=== PATIENT | female | born 1980 | race Caucasian/White ===

== ENCOUNTER → 2016-11-24 | Outpatient (CLI) | payer OTHER ==
--- NOTE | 2016-11-24 08:14 | REP ---
Transvaginal pelvic ultrasound 11/24/2016 Indication: Infertility Comparison: Transvaginal pelvic ultrasound 11/06/2016 Findings: This is day three of menstrual cycle. Uterus measures 8.1 x 3.9 x 4.9 cm. Endometrium is 4.6 mm in thickness and smooth. There is trace endometrial fluid identified. There is trace free fluid in posterior cul-de-sac Right ovary measures 2.5 x 1.6 x 1.8 cm and contains eight subcentimeter follicles ranging from 1.9-3.7 mm in size. Left ovary measures 3.0 x 1.8 x 2.8 cm and contains 13 sub centimeter follicles ranging from 2.7-9.6 mm size. Impression: Endometrium is 4.6 mm in thickness. There is trace fluid within the endometrium and in posterior cul-de-sac Eight sub centimeter right and 13 sub centimeter left ovarian follicles. There are no dominant follicles greater than or equal to 10 mm size. Signed by Zee Moya MD 11/24/2016 08:06 A
[2016-11-24 10:09] LABS: LUTEINIZING HORMONE 3.1 mIU/mL; PROGESTERONE 0.4 NG/ML
[2016-11-24 10:10] LABS: ESTRADIOL 59.3 PG/ML
== END | disposition home or self-care (01) ==
LOC: M LAB 07:21 → M RAD 07:21
PROVIDERS: ATTEND Obstetrics & Gynecology Reproductive Endocrinology
DX: N97.9 Female infertility, unspecified (principal); R93.8 Abnormal findings on diagnostic imaging of other specified body structures

== ENCOUNTER → 2016-12-01 | Outpatient (CLI) | payer OTHER ==
--- NOTE | 2016-12-01 07:57 | REP ---
Clinical: Infertility. Technique: Transvaginal examination. Findings: Anteverted uterus measures 8.3 x 4.0 x 5.2 cm. The endometrial complex measures 7.3 mm in thickness and has a normal trilaminar appearance. Right ovary measures 2.6 x 2.0 x 2.1 cm with approximately seven sub centimeter follicles. Left ovary measures 3.7 x 2.9 x 2.3 cm with 19 mm, 12 mm, and 13 mm follicles and two sub centimeter follicles. No pelvic fluid or adnexal mass lesion noted. Impression: Few bilateral follicles as noted above. Signed by Reese Chacon MD 12/01/2016 07:49 A
[2016-12-01 09:12] LABS: ESTRADIOL 83.4 PG/ML; LUTEINIZING HORMONE 4.9 mIU/mL; PROGESTERONE 0.5 NG/ML
== END | disposition home or self-care (01) ==
LOC: M RAD 06:56
PROVIDERS: ATTEND Obstetrics & Gynecology Reproductive Endocrinology
DX: N97.9 Female infertility, unspecified (principal)

== ENCOUNTER 2017-02-19 11:06 | Inpatient (IN) | payer OTHER ==
[~2017-02-19] VITALS: Ht 167.6 cm; Wt 75.3 kg
[2017-02-19 12:52] LABS: MEAN CORPUSCULAR HEMOGLOBIN 28.5 pg (27.0-33.0); MEAN CORPUSCULAR HGB CONC 32.6 g/dl (32.0-36.5); MEAN CORPUSCULAR VOLUME 87.5 fl (80.0-96.0); RED CELL DISTRIBUTION WIDTH 12.7 % (11.5-14.5); WHITE BLOOD COUNT 6.3 K/mm3 (4.0-10.0)
[2017-02-19 12:58] LABS: CONTROL LINE HCG INT CTR LINE PRESENT
[2017-02-19 13:09] LABS: METHADONE URINE NEGATIVE (NEGATIVE)
[2017-02-19 13:14] LABS: ALBUMIN/GLOBULIN RATIO 1.03 (1.00-1.93); ALKALINE PHOSPHATASE 113 U/L (45-117); ALT/SGPT 26 U/L (12-78); ANION GAP 5 MEQ/L (8-16); AST/SGOT 17 U/L (15-37); BILIRUBIN,DIRECT < 0.1 MG/DL (0.0-0.2); BILIRUBIN,TOTAL 0.2 MG/DL (0.2-1.0); BLOOD UREA NITROGEN 14 MG/DL (7-18); CARBON DIOXIDE LEVEL 30 MEQ/L (21-32); CHLORIDE LEVEL 105 MEQ/L (98-107); CREATININE FOR GFR 0.85 MG/DL (0.55-1.02); GLOMERULAR FILTRATION RATE > 60.0 (>60); GLUCOSE, FASTING 78 MG/DL (70-105); POTASSIUM SERUM 4.2 MEQ/L (3.5-5.1); SODIUM LEVEL 140 MEQ/L (136-145); TOTAL PROTEIN 7.9 GM/DL (6.4-8.2)
[2017-02-19] MEDS ORDERED: PROP60TA14 PO (14:37)
[2017-02-19] MEDS ORDERED: [UNRECOGNIZED DRUG - OTHER] GT (14:37)
[2017-02-19] MEDS ORDERED: PRAZ1CAP PO (14:37)
[2017-02-19] MEDS ORDERED: AMBI5TAB PO (14:37)
[2017-02-19] MEDS ORDERED: ZZZQ50LI PO (14:37)
[2017-02-19] MEDS ORDERED: LEXA1TAB2 PO (14:37)
[2017-02-19] MEDS ORDERED: ZOLP12.515 PO (15:33)
[2017-02-19 17:52] VITALS: BP 131/87
[2017-02-19] MEDS ORDERED: MOM 30ML SUSPENSION UDC PO PRN (18:45)
[2017-02-19] MEDS ORDERED: ACETAMINOPHEN TAB 650MG DOSE (2X325MG) PO PRN (18:45)
[2017-02-19] MEDS ORDERED: MAALOX 30 ML SUSP *UDC PO PRN (18:45)
[2017-02-19] MEDS: traZODone 50 MG TAB PO PRN (21:07)
[2017-02-19] MEDS: PRAZOSIN 1 MG CAP PO SCH (21:08)
[2017-02-20 06:33] VITALS: BP 100/58
[2017-02-20] MEDS: PANTOPRAZOLE 40MG TAB (PROTONIX) PO SCH (08:39)
[2017-02-20] MEDS: CitaloPRAM (CeleXA) 20 MG TAB PO SCH ×2 (08:40→09:54)
[2017-02-20] MEDS: hydrOXYzine 25 MG TAB PO SCH ×3 (09:54→21:04)
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
[2017-02-20 18:00] VITALS: BP 96/56
[2017-02-20] MEDS: PRAZOSIN 1 MG CAP PO SCH (21:04)
[2017-02-20] MEDS: traZODone 50 MG TAB PO PRN (21:04)
[2017-02-21 07:00] VITALS: BP 93/52
[2017-02-21] MEDS: CitaloPRAM (CeleXA) 20 MG TAB PO SCH (08:34)
[2017-02-21] MEDS: PANTOPRAZOLE 40MG TAB (PROTONIX) PO SCH (08:34)
[2017-02-21] MEDS: hydrOXYzine 25 MG TAB PO SCH ×3 (08:34→22:13)
--- NOTE | 2017-02-21 09:01 | ECGEPIP ---
Stationary ECG Study [facility] - ED Test Date: 2017-02-19 Pat Name: ASHLEY GONZALEZ Department: Room: - Gender: F Surgical Services Director: JAVAD : 1980 Requested By: BACILIO Moreno Order Number: [id number] Reading MD: Dwayne Bonds Measurements Intervals [place] Rate: 61 P: 19 IA: 142 QRS: 76 QRSD: 101 T: 40 QT: 442 QTc: 445 Interpretive Statements SINUS RHYTHM INCOMPLETE RIGHT BUNDLE BRANCH BLOCK NO PRIOR Electronically Signed On 02-21-2017 9:00:58 EDT by Dwayne Bonds
[2017-02-21 18:00] VITALS: BP 123/63
[2017-02-21] MEDS: traZODone 50 MG TAB PO PRN (22:13)
[2017-02-21] MEDS: PRAZOSIN 1 MG CAP PO SCH (22:14)
[2017-02-22 06:42] VITALS: BP 97/55
[2017-02-22] MEDS: CitaloPRAM (CeleXA) 20 MG TAB PO SCH (09:06)
[2017-02-22] MEDS: hydrOXYzine 25 MG TAB PO SCH ×3 (09:06→21:41)
[2017-02-22] MEDS: PANTOPRAZOLE 40MG TAB (PROTONIX) PO SCH (09:06)
--- NOTE | 2017-02-22 10:04 | IPN ---
DATE: 02/21/2017 Paulina Carrillo is seen today with female staff. Eye contact is poor. Mood is low. Patient is anxious. Patient states she wishes to leave. Patient states she does not trust any men. When questioned on how she functioned in the [employer] in this condition, patient states that she kept on a "happy face." Patient presently denying hallucinations, delusions, obsessions, compulsions, and phobias. Her speech is quiet. Thought process is clear. No loose associations. No abnormal or psychotic thoughts. Judgment and insight poor. Orientation in three spheres is present. No disturbance of recent and remote memory. Fund of knowledge is full. Mood is low, affect is sad. Patient sarcastically stated in order to be discharged she would "put on a happy face." She was very concerned that members of her unit seemed to know about her hospitalization "at the [facility]" in [place]. IMPRESSION: 1. Posttraumatic stress disorder. 2. Major depression. I have moved her citalopram to 40 mg per day, prazosin 2 mg, Atarax 25 mg three times a day. [facility]
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
[2017-02-22 18:00] VITALS: BP 114/58
[2017-02-22] MEDS: traZODone 50 MG TAB PO PRN (21:40)
[2017-02-22 21:41] VITALS: BP 124/78
[2017-02-22] MEDS: PRAZOSIN 1 MG CAP PO SCH (21:41)
[2017-02-23 06:34] VITALS: BP 119/59
[2017-02-23] MEDS ORDERED: HYDR25T PO (07:20)
[2017-02-23] MEDS ORDERED: PANT40TA2 PO (07:20)
[2017-02-23] MEDS ORDERED: MINI1CAP PO (07:20)
[2017-02-23] MEDS ORDERED: CITA40TA4 PO (07:20)
--- NOTE | 2017-02-23 07:47 | HPE ---
DATE OF ADMISSION: 02/19/2017 HISTORY OF PRESENT ILLNESS: Please refer to psychiatric history and evaluation for further details on this admission. This examination and history is intended for medical issues, which may need treatment, followup or consult on this 37-year-old female. ALLERGIES: No known allergies. PRIMARY CARE PROVIDER: [facility]. 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 She has three children; a girl three years old, a boy nine years old, a girl eight years old. Ethyl alcohol (EtOH) once a month if that. Smoker. She states she quit January 2017. Recreational drug use none. PAST MEDICAL HISTORY: Negative. PAST SURGICAL HISTORY: Negative. LABORATORY DATA: CBC was normal. Electrolytes are normal. BUN is 14, creatinine 0.8. Toxicology was negative. HOME MEDICATIONS: - Lexapro 20 mg by mouth daily - prazosin 1 mg by mouth at bedtime - Ambien 12.5 mg by mouth at bedtime - ZzzQuil 50 mg per 30 mL one by mouth at bedtime as needed for sleep REVIEW OF SYSTEMS: 10-system review was done and was unremarkable. She had no complaints. PHYSICAL EXAMINATION: A 37-year-old cooperative female in no acute distress. Height 66 inches, weight 75.5 kg. Body mass index (BMI) 26.9. VITAL SIGNS: Blood pressure 123/63, pulse 73, respirations 16, temperature 98.9. GENERAL: The patient is alert and oriented times three. HEENT: Pupils equal and react to light. Extraocular movements are intact. Sclerae clear. Conjunctivae normal. No facial asymmetry. Pharynx, tongue and gums are pink and moist. Tongue is midline. NECK: Supple without lymphadenopathy. No thyromegaly. No goiter. CHEST: Clear to auscultation. No wheeze or retraction. CARDIAC: Regular. ABDOMEN: Benign. Bowel sounds positive. GENITOURINARY/RECTAL: Not done. EXTREMITIES: Show equal strength. Full range of motion. No cyanosis, clubbing or edema. Peripheral pulses equal and palpable bilaterally. SKIN: Warm and dry. IMPRESSION AND PLAN: Psychiatric plan per psychiatry. No acute medical issues.
[2017-02-23] MEDS: PANTOPRAZOLE 40MG TAB (PROTONIX) PO SCH (08:35)
[2017-02-23] MEDS: hydrOXYzine 25 MG TAB PO SCH (08:35)
[2017-02-23] MEDS: CitaloPRAM (CeleXA) 20 MG TAB PO SCH (08:35)
[2017-02-23] MEDS ORDERED: TRAZ50TA4 PO (15:01)
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
== END 2017-02-23 09:35 | disposition home or self-care (01) | DRG 882 ==
LOC: M ED 12:46 → M ED INP 14:51 → M PSY 17:15
PROVIDERS: ADMIT Psychiatry & Neurology Child & Adolescent Psychiatry; ATTEND Psychiatry & Neurology Child & Adolescent Psychiatry
DX: F43.10 Post-traumatic stress disorder, unspecified (principal); F32.9 Major depressive disorder, single episode, unspecified; T48.3X2A Poisoning by antitussives, intentional self-harm, initial encounter; Y92.009 Unspecified place in unspecified non-institutional (private) residence as the place of occurrence of the external cause; Z62.810 Personal history of physical and sexual abuse in childhood; Z87.891 Personal history of nicotine dependence; Z79.899 Other long term (current) drug therapy

== ENCOUNTER 2020-06-07 12:45 | Inpatient (IN) | payer OTHER ==
[~2020-06-07 12:45] MED LIST: AMBI5TAB PO; CITA40TA4 PO; HYDR-3363 PO; LEXA1TAB2 PO; MINI1CAP PO; PANT40TA29 PO; PRAZ1CAP PO; PROP60TA14 PO; TRAZ-252 PO; ZOLP12.518 PO; ZZZQ50LI PO; [UNRECOGNIZED DRUG - OTHER] GT
[2020-06-07] MEDS ORDERED: miSOPROStol 200 MCG TAB (S0191) As Ordered ONE ×2 (19:26→23:34)
[2020-06-07] MEDS ORDERED: miSOPROStol 200 MCG TAB (S0191) ONE ×2 (19:26→23:16)
[2020-06-07] MEDS ORDERED: FENTANYL 2MCG/ML ROPIVACAINE 0.2% IN 0.9% NACL 100ML IVBAG As Ordered ONE ×2 (19:27→22:07)
[2020-06-07] MEDS ORDERED: zolPIDEM TARTRATE 5 MG TAB ONE (21:22)
[2020-06-07] MEDS ORDERED: FENTANYL 2MCG/ML ROPIVACAINE 0.2% IN 0.9% NACL 100ML IVBAG ONE (22:07)
[2020-06-07] MEDS ORDERED: ePHEDrine SULFATE 25 MG/5 ML(5MG/ML) SYRINGE As Ordered ONE (23:16)
[2020-06-07] MEDS ORDERED: ePHEDrine SULFATE 25 MG/5 ML(5MG/ML) SYRINGE ONE (23:16)
[2020-06-08] MEDS ORDERED: LOPERAMIDE 2 MG CAPLET ONE ×2 (00:40→02:33)
[2020-06-08] MEDS ORDERED: LOPERAMIDE 2 MG CAPLET As Ordered ONE ×2 (00:40→02:33)
[2020-06-08] MEDS ORDERED: miSOPROStol 100 MCG TAB (S0191) ONE ×2 (02:33→02:37)
[2020-06-08] MEDS ORDERED: ACETAMINOPHEN 500 MG TAB ONE (02:33)
[2020-06-08] MEDS ORDERED: ACETAMINOPHEN 500 MG TAB As Ordered ONE (02:33)
[2020-06-08] MEDS ORDERED: miSOPROStol 100 MCG TAB (S0191) As Ordered ONE ×2 (02:34→02:37)
[2020-06-08] MEDS ORDERED: miSOPROStol 200 MCG TAB (S0191) As Ordered ONE (02:36)
[2020-06-08] MEDS ORDERED: OXYTOCIN 30 UNITS IN 0.9% NaCl 500ML IV BAG (J2590) As Ordered ONE (04:48)
[2020-06-08] MEDS ORDERED: OXYTOCIN 30 UNITS IN 0.9% NaCl 500ML IV BAG (J2590) ONE (04:48)
[2020-07-28 22:05] LABS: RED BLOOD COUNT 4.37 10^6/uL (4.00-5.40)
[2020-07-28 22:06] LABS: BASO % 0.6 % (0.0-1.0); EOS # 0.1 10^3/uL (0.0-0.5); EOS % 0.6 % (0.0-3.0); HEMATOCRIT 37.8 % (36.0-47.0); HEMOGLOBIN 12.6 g/dl (12.0-15.5); LYMPH # 2.7 10^3/uL (1.5-5.0); LYMPH % 24.1 % (24.0-44.0); MEAN CORPUSCULAR HEMOGLOBIN 28.8 pg (27.0-33.0); MEAN CORPUSCULAR HGB CONC 33.3 g/dl (32.0-36.5); MEAN CORPUSCULAR VOLUME 86.5 fl (80.0-96.0); MONO # 0.5 10^3/uL (0.0-0.8); MONO % 4.5 % (0.0-5.0); NEUTROPHILS # 7.7 10^3/uL (1.5-8.5); NEUTROPHILS % 69.7 % (36.0-66.0); PLATELET COUNT, AUTOMATED 336 10^3/uL (150-450)
[2020-07-28 22:07] LABS: BASO # 0.1 10^3/uL (0.0-0.2)
[2020-08-04 14:07] LABS: CHROMPC1 SEE SEPARATE REPORT
[2020-08-18 14:35] LABS: ANTI PARVO VIRUS LEVEL IGG SEE SEPARATE REPORT; ANTI PARVO VIRUS LEVEL IgM SEE SEPARATE REPORT; ANTI THROMBIN 3 FUNCT ACTIVITY SEE SEPARATE REPORT % NORMAL; CARDIOLIPIN IGA ANTIBODY SEE SEPARATE REPORT; CARDIOLIPIN IGG ANTIBODY SEE SEPARATE REPORT; CARDIOLIPIN IGM ANTIBODY SEE SEPARATE REPORT; FACTOR II PROTHROMBIN GENE AN SEE SEPARATE REPORT; FACTOR V LEIDEN FOR MEDINET SEE SEPARATE REPORT; MTHFR DNA ANALYSIS SEE SEPARATE REPORT; PROTEIN C FUNCTIONAL ACTIVITY SEE SEPARATE REPORT %; PROTEIN S FUNCTIONAL ACTIVITY SEE SEPARATE REPORT %
[2020-08-18 14:37] LABS: CYTOMEGALOVIRUS IgG ANTIBODY SEE SEPARATE REPORT
[2020-08-30 13:32] LABS: FREE T3 2.2 PG/ML (2.2-4.0); FREE T4 1.02 NG/DL (0.76-1.46); THYROGLOBULIN ANTIBODY < 15.0 U/ML (<60.0)
[2020-09-04 12:51] LABS: INR 0.99; PARTIAL THROMBOPLASTIN TIME 27.7 SECONDS (24.2-38.5); PROTHROMBIN TIME 13.3 SECONDS (12.5-14.3)
== END 2020-06-08 10:20 | disposition home or self-care (01) | DRG 807 ==
LOC: M LDI 12:45
PROVIDERS: ADMIT Obstetrics & Gynecology; ATTEND Obstetrics & Gynecology
PROC: 10D17Z9 Manual Extraction of Products of Conception, Retained, Via Natural or Artificial Opening (ICD-10-PCS; principal; 2020-06-08)
PROC: 10E0XZZ Delivery of Products of Conception, External Approach (ICD-10-PCS; 2020-06-08)
DX: O02.1 Missed abortion (principal); Z37.0 Single live birth; Z3A.16 16 weeks gestation of pregnancy

== ENCOUNTER 2023-09-25 10:07 | Emergency (ER) | payer OTHER ==
[~2023-09-25] VITALS: Ht 170.2 cm; Wt 88.5 kg
[~2023-09-25 10:07] MED LIST changes: -CITA40TA4 PO; +CITA40TA7 PO
[2023-09-25] MEDS ORDERED: SYNT50TA (10:18)
[2023-09-25] MEDS ORDERED: VITA100093 (10:18)
[2023-09-25] MEDS ORDERED: ONDANSETRON 4MG 2ML VIAL IV ONE (12:45)
[2023-09-25] MEDS ORDERED: ACETAMINOPHEN TAB 650MG DOSE (2X325MG) PO ONE (12:45)
[2023-09-25] MEDS ORDERED: KETOROLAC 30 MG/ML 1ML VIAL IV ONE (12:45)
[2023-09-25] MEDS ORDERED: NS 1,000 ML IV ONE (12:45)
[2023-09-25 12:46] LABS: BASO % 0.5 % (0.0-1.0); EOS # 0.1 10^3/uL (0.0-0.5); EOS % 1.7 % (0.0-3.0); HEMATOCRIT 41.2 % (36.0-47.0); HEMOGLOBIN 13.6 g/dl (12.0-15.5); LYMPH # 2.4 10^3/uL (1.5-5.0); LYMPH % 39.4 % (24.0-44.0); MEAN CORPUSCULAR HEMOGLOBIN 28.3 pg (27.0-33.0); MEAN CORPUSCULAR VOLUME 85.8 fl (80.0-96.0); MONO # 0.4 10^3/uL (0.0-0.8); MONO % 6.3 % (2.0-8.0); NEUTROPHILS # 3.1 10^3/uL (1.5-8.5); NEUTROPHILS % 51.8 % (36.0-66.0); PLATELET COUNT, AUTOMATED 349 10^3/uL (150-450)
[2023-09-25 13:01] LABS: ERYTHROCYTE SEDIMENTATION RATE 23 mm/hr (0-20)
[2023-09-25 13:07] LABS: MAGNESIUM LEVEL 2.1 MG/DL (1.8-2.4)
[2023-09-25 13:08] LABS: C REACTIVE PROTEIN QUANTITATIV < 0.40 MG/DL (<1.0)
[2023-09-25 13:12] LABS: THYROID STIMULATING HORMONE 2.214 uIU/ML (0.55-4.78)
[2023-09-25] MEDS ORDERED: KETO10TAB PO (13:49)
[2023-09-25] MEDS ORDERED: ONDA4TAB6 PO (13:49)
[2023-09-25 13:56] VITALS: BP 127/76; TEMP 96.7; O2SAT 99
== END 2023-09-25 14:22 | disposition home or self-care (01) ==
LOC: M ED 10:07
DX: G43.909 Migraine, unspecified, not intractable, without status migrainosus (principal); K21.9 Gastro-esophageal reflux disease without esophagitis; E03.9 Hypothyroidism, unspecified; Z87.891 Personal history of nicotine dependence
CPT/HCPCS: 80047; 83735; 84443; 84702; 85025; 85652; 86140; 96361; 96374; 96375; 99284; J1885; J2405

== ENCOUNTER → 2024-02-24 | Outpatient (REF) | payer OTHER ==
[~2024-02-24] MED LIST changes: +KETO10TAB PO; +ONDA4TAB6 PO; +SYNT50TA; +VITA100093
== END ==
LOC: M LAB REF 16:11
PROVIDERS: ATTEND Nurse Practitioner Family
DX: R30.0 Dysuria (principal)

== ENCOUNTER → 2024-08-11 | Outpatient (CLI) | payer OTHER ==
[~2024-08-11] MED LIST changes: +ONDA-282 PO; -ONDA4TAB6 PO; -ZOLP12.518 PO; +ZOLP12.535 PO
== END ==
LOC: M WHC 08:54
PROVIDERS: ATTEND Physician Assistant
DX: Z12.31 Encounter for screening mammogram for malignant neoplasm of breast (principal)

== ENCOUNTER 2025-06-07 11:03 | Day surgery (SDC) | payer OTHER ==
[~2025-06-07] VITALS: Ht 168.9 cm; Wt 93.0 kg
[~2025-06-07 11:03] MED LIST changes: -AMBI5TAB PO; +ATOM40CA9 PO; +D 50CAP3 PO; +DICL50TA2 PO; +HYDR-643 PO; +MELA3TAB30 PO; +PROP10TA56 PO; +RIZA10TA2 PO; -SYNT50TA; +SYNT50TA PO; +VENL37.598 PO; +VENL75CA47 PO; +ZOLP-532 PO
[2025-06-07] MEDS ORDERED: LIDOCAINE 2% 100 MG/5 ML SDV (FOR ANES.) As Ordered ONE (12:40)
[2025-06-07] MEDS ORDERED: GLYCOPYRROLATE INJ 0.2 MG/ML 2 ML VIAL As Ordered ONE (12:40)
[2025-06-07] MEDS ORDERED: ONDANSETRON 4MG 2ML VIAL As Ordered ONE (13:12)
[2025-06-07 13:30] VITALS: TEMP 97.6
[2025-06-07 13:47] VITALS: BP 114/60; O2SAT 100
== END 2025-06-07 14:00 | disposition home or self-care (01) ==
LOC: M OPP 11:03
PROVIDERS: ATTEND Internal Medicine Gastroenterology
DX: D12.2 Benign neoplasm of ascending colon (principal); K64.8 Other hemorrhoids; K59.00 Constipation, unspecified; R10.12 Left upper quadrant pain; R10.13 Epigastric pain; Z79.899 Other long term (current) drug therapy
CPT/HCPCS: 43235; 45385; 88305; J1596; J2405; J3010

== ENCOUNTER → 2025-07-31 | Outpatient (CLI) | payer OTHER ==
[~2025-07-31] MED LIST changes: +ISOVUE-370 76% 100 ML VIAL ONE
== END ==
LOC: M PLAIMG 09:50
PROVIDERS: ATTEND Physician Assistant Medical
DX: R10.12 Left upper quadrant pain (principal); R14.0 Abdominal distension (gaseous)